=== PATIENT | female | born 1990 | race Caucasian/White ===

== ENCOUNTER 2017-03-03 17:58 | Emergency (ER) | payer OTHER ==
[2017-03-03 18:05] VITALS: BMI 26.1
[2017-03-03 18:37] VITALS: BP 96/59; PULSE 88; TEMP 98.6
[2017-03-03] MEDS ORDERED: LACTATED RINGERS SOLUTION 500 ML IV ONE ×2 (20:00→21:00)
[2017-03-03] MEDS ORDERED: BETAMET ACET/BETAMET NA PH 30 MG/5 ML VIAL IM SCH (20:00)
[2017-03-03] MEDS ORDERED: AMPICILLIN 2 GM/100 ML BAG (PRE-DOCKED) IVPB ONE (20:00)
== END 2017-03-03 23:55 | disposition home or self-care (01) ==
LOC: JER 17:58
DX: R10.84 Generalized abdominal pain (principal); Z3A.30 30 weeks gestation of pregnancy
CPT/HCPCS: 99281-25

== ENCOUNTER 2017-05-07 20:05 | Inpatient (IN) | payer OTHER ==
--- NOTE | 2017-05-07 20:54 | HP ---
Past Medical History - Admission Chief Complaint: Labor pain History of Present Illness: 26 yo @ 39 weeks gestation, seen in office today and was sent to hospital for augmentation of labor. She c/o mild contractions pain; she denies any vaginal bleeding nor ROM. EDC 08/19 History Source: Patient Limitations to Obtaining History: No Limitations - Past Medical History ...EDC by Stacey: 05/12/17 - Past Surgical History Past Surgical History: Yes: None Hx Myomectomy: No Hx Transabdominal Cerclage: No - Smoking History Smoking history: Never smoked Have you smoked in the past 12 months: No - Alcohol/Substance Use Hx Alcohol Use: No - Social History Usual Living Arrangement: Yes: With Spouse History of Recent Travel: No Home Medications - Allergies Allergies/Adverse Reactions: Allergies Allergy/AdvReac Type Severity Reaction Status Date / Time No Known Allergies Allergy Verified 05/03/17 04:30 - Home Medications Home Medications: Ambulatory Orders Vit Calc,Iron,Folic [ Vitamins] 1 each PO DAILY 03/03/17 Review of Systems - Review of Systems Constitutional: reports: No Symptoms Eyes: reports: No Symptoms Neck: reports: No Symptoms Cardiovascular: reports: No Symptoms Respiratory: reports: No Symptoms Gastrointestinal: reports: No Symptoms Genitourinary: reports: No Symptoms Breasts: reports: No Symptoms Reported Musculoskeletal: reports: No Symptoms Integumentary: reports: No Symptoms Neurological: reports: No Symptoms Endocrine: reports: No Symptoms Hematology/Lymphatic: reports: No Symptoms Psychiatric: reports: No Symptoms Pain Intensity: 3 Physical Exam - Maternity Constitutional: Yes: Well Nourished Eyes: Yes: Conjunctiva Clear HENT: Yes: Atraumatic Neck: Yes: Supple, Trachea Midline Cardiovascular: Yes: Regular Rate and Rhythm Lungs: Clear to auscultation - Abdominal Exam/OB Number of Fetuses: Single Presentation: Vertex Contractions: Yes Regularity: Irregular - Vaginal Exam/OB Vaginal Bleediing: No Dilatation (cm): 5 Effacement (%): 80 Presentation: Vertex/Position Station: -2 - Physical Exam Integumentary: Yes: WNL ...Motor Strength: WNL Psychiatric: Yes: Alert, Oriented Problem List - Problems (1) Pain during labor Code(s): O99.89 - OTH DISEASES AND CONDITIONS COMPL PREG/CHLDBRTH R52 - PAIN, UNSPECIFIED Assessment/Plan Labor pain Pitocin augmentation Anticipate
[2017-05-07] MEDS ORDERED: OXYTOCIN 15 UNITS/ LR 250 ML 250 ML IVPB SCH (21:00)
[2017-05-07] MEDS ORDERED: DEXTROSE 5%-LACTATED RINGERS 1,000 ML IV SCH (21:00)
[2017-05-07 22:08] VITALS: BMI 27.9
[2017-05-07 22:23] LABS: BASOPHIL 0.3 % (0-2.0); EOSINOPHIL 0.6 % (0-4.5); MCH 27.8 pg (25.7-33.7); MCHC 33.4 g/dl (32.0-36.0); MEAN CELL VOLUME 83.3 fl (80-96); MEAN PLT VOLUME 8.3 fl (7.5-11.1); NEUTROPHILS 74.9 % (42.8-82.8); PLATELET COUNT 272 K/MM3 (134-434); RDW 13.7 % (11.6-15.6); WHITE BLOOD COUNT 10.8 K/mm3 (4.0-10.0)
[2017-05-07 22:38] LABS: INR 0.92 (0.82-1.09); PROTHROMBIN TIME (PATIENT) 10.1 SEC (9.98-11.88)
[2017-05-07 22:40] LABS: ACTIVATED PTT 25.1 SECONDS (26.9-34.4)
[2017-05-07 22:43] LABS: ANION GAP 10 (8-16); CALCIUM 9.3 mg/dL (8.5-10.1); CO2 24 mmol/L (21-32); CREATININE 0.5 mg/dL (0.55-1.02); GLUCOSE,RANDOM 101 mg/dL (74-106)
[2017-05-07] MEDS ORDERED: PROMETHAZINE HCL 25 MG/1 ML VIAL IVPB ONE (23:15)
[2017-05-07] MEDS ORDERED: BUTORPHANOL TARTRATE 1 MG/ML VIAL IVPB ONE (23:15)
[2017-05-08] MEDS ORDERED: WITCH HAZEL 50% (TUCKS) 40 PAD/JAR PAD TP PRN (00:29)
[2017-05-08] MEDS ORDERED: METHYLERGONOVINE MALEATE 0.2 MG/1 ML AMP IM PRN (00:29)
[2017-05-08] MEDS ORDERED: BISACODYL 10 MG SUPP.RECT RC PRN (00:29)
[2017-05-08] MEDS ORDERED: BENZOCAINE 20% 57 GM BOTTLE TP PRN (00:29)
[2017-05-08] MEDS ORDERED: BENZOCAINE 28 GM HEMORRHOIDAL OINTMENT TP PRN (00:29)
[2017-05-08] MEDS ORDERED: D5W-LR W/ 20 UNITS OXYTOCIN 1,000 ML IV SCH (00:30)
--- NOTE | 2017-05-08 00:34 | PN ---
Delivery - Delivery Vaginal Delivery: Spontaneous Type of Anesthesia: Local Episiotomy/Laceration: 1st degree EBL (cc): 300 Delivery, Single - Feeding Plan Initial Plan: Exclusive throughout hospitalization Remarks - Remarks Remarks: Normal spontaneous vaginal delivery of a live girl over 1st degree laceration. Nose / Oropharynx suctioned @ perineum. Cord clamped and cut. Placenta expelled spontaneously intact. Laceration repaired with 2.0 Byosyn
--- NOTE | 2017-05-08 00:42 | DS ---
Physical Exam-MEAT HANGER Vital Signs: Vital Signs Temperature 98.0 F 05/07/17 22:00 Pulse Rate 89 05/07/17 23:00 Respiratory Rate 20 05/07/17 23:00 Blood Pressure 112/72 05/07/17 23:00 O2 Sat by Pulse Oximetry (%) Constitutional: Yes: Well Nourished Eyes: Yes: Conjunctiva Clear HENT: Yes: Atraumatic Neck: Yes: Supple, Trachea Midline Cardiovascular: Yes: Regular Rate and Rhythm Respiratory: Yes: Regular, CTA Bilaterally Gastrointestinal: Yes: Normal Bowel Sounds Vaginal Exam: Yes: Normal Cervix: Yes: Normal Uterus: Yes: Firm ....Post : Yes: Uterus firm, Moderate lochia serosa Breast(s): Yes: WNL, Gynecomastia Extremities: Yes: WNL Neurological: Yes: Alert, Oriented ...Motor Strength: WNL Psychiatric: Yes: Alert, Oriented Labs: CBC, BMP 05/07/17 21:20 05/07/17 21:20 Delivery - Delivery Vaginal Delivery: Spontaneous Type of Anesthesia: Local Episiotomy/Laceration: 1st degree EBL (cc): 300 Delivery, Single - 1 Minute Total Score: 9 5 Minutes Total Score: 9 - [place] Feeding Plan Initial Plan: Exclusive throughout hospitalization Discharge Summary Reason For Visit: LABOR ADMIT Current Active Problems Pain during labor (Acute) Status post normal vaginal delivery (Acute) Procedures: Principal: Normal spontaneous vaginal delivery Hospital Course: Routine care Condition: Good - Instructions Diet, Activity, Other Instructions: Regular diet No douching, no sexual intercourse x 6 weeks. Referrals: Mari Conway MD [Staff Physician] - Disposition: HOME - Home Medications Comprehensive Discharge Medication List: Ambulatory Orders Vit Calc,Iron,Folic [ Vitamins] 1 each PO DAILY 03/03/17
[2017-05-08] MEDS: IBUPROFEN 600 MG TABLET (FP) PO PRN ×3 (06:41→20:24)
[2017-05-08] MEDS: ACETAMINOPHEN 325 MG TABLET (FP) PO PRN ×3 (06:43→20:23)
[2017-05-08] MEDS: PRENATAL VITAMINS W/ FOLIC ACID TABLET (FP) PO SCH (09:13)
[2017-05-08] MEDS: FERROUS SO4 325 MG TABLET (FP) PO SCH ×3 (09:13→17:12)
[2017-05-09] MEDS: IBUPROFEN 600 MG TABLET (FP) PO PRN ×4 (05:20→22:55)
[2017-05-09] MEDS: ACETAMINOPHEN 325 MG TABLET (FP) PO PRN ×4 (05:21→22:55)
[2017-05-09 07:03] LABS: BASOPHIL 0.4 % (0-2.0); EOSINOPHIL 1.1 % (0-4.5); MCHC 33.6 g/dl (32.0-36.0); MEAN CELL VOLUME 83.3 fl (80-96); NEUTROPHILS 70.1 % (42.8-82.8); PLATELET COUNT 240 K/MM3 (134-434); WHITE BLOOD COUNT 12.2 K/mm3 (4.0-10.0)
[2017-05-09] MEDS: FERROUS SO4 325 MG TABLET (FP) PO SCH ×3 (08:36→17:13)
[2017-05-09] MEDS: PRENATAL VITAMINS W/ FOLIC ACID TABLET (FP) PO SCH (09:41)
[2017-05-09] MEDS ORDERED: DIPHTH,PERTUSS(ACELL),TET 0.5 ML DISP.SYRIN IM ONE (11:00)
[2017-05-09] MEDS ORDERED: SENNOSIDES/DOCUSATE COMBO (SENNA PLUS) TABLET (UD) PO PRN (22:00)
[2017-05-10] MEDS: ACETAMINOPHEN 325 MG TABLET (FP) PO PRN ×3 (03:37→13:02)
[2017-05-10] MEDS: IBUPROFEN 600 MG TABLET (FP) PO PRN ×3 (03:37→13:01)
[2017-05-10] MEDS: FERROUS SO4 325 MG TABLET (FP) PO SCH ×2 (08:05→11:41)
[2017-05-10] MEDS: PRENATAL VITAMINS W/ FOLIC ACID TABLET (FP) PO SCH (10:04)
[2017-05-10 10:18] VITALS: BP 114/75; PULSE 60; TEMP 97.9
== END 2017-05-10 14:35 | disposition home or self-care (01) | DRG 560 ==
LOC: JLDR 20:05 → J3W 05-08 03:15
PROVIDERS: ADMIT Obstetrics & Gynecology; ATTEND Obstetrics & Gynecology
PROC: 10E0XZZ Delivery of Products of Conception, External Approach (ICD-10-PCS; principal; 2017-05-08)
PROC: 0HQ9XZZ Repair Perineum Skin, External Approach (ICD-10-PCS; 2017-05-08)
PROC: 0W8NXZZ Division of Female Perineum, External Approach (ICD-10-PCS; 2017-05-08)
DX: O70.0 First degree perineal laceration during delivery (principal); Z3A.39 39 weeks gestation of pregnancy; Z37.0 Single live birth
CPT/HCPCS: 36415; 59409; 80048; 85025; 85610; 85730; 86593; 86850; 86900; 86901; 90715

== ENCOUNTER 2019-01-25 10:36 | Emergency (ER) | payer OTHER ==
[2019-01-25 10:52] VITALS: BP 103/64; PULSE 69; TEMP 98.2; BMI 22.9
[2019-01-25] MEDS ORDERED: ONDANSETRON *ODT* 4 MG TABLET SL ONE (12:25)
[2019-01-25] MEDS ORDERED: ONDANSETRON *ODT* 4 MG TABLET ONE (12:27)
--- NOTE | 2019-01-25 12:28 | PDOC ---
History of Present Illness - General Chief Complaint: Nausea/Vomiting Stated Complaint: NAUSEA/VOMITING Time Seen by Provider: 01/25/19 11:57 - History of Present Illness Initial Comments: 01/25/19 12:27 28-year-old female with a past medical history of GERD, she takes omeprazole and intermittent Zofran presents for evaluation of vomiting times one day. No systemic symptoms. Past History - Past Medical History Allergies/Adverse Reactions: Allergies Allergy/AdvReac Type Severity Reaction Status Date / Time No Known Allergies Allergy Verified 01/25/19 10:52 Home Medications: Ambulatory Orders Vit Calc,Iron,Folic [ Vitamins] 1 each PO DAILY 03/03/17 Asthma: No Cancer: No Cardiac Disorders: No COPD: No Diabetes: No HTN: No Seizures: No Thyroid Disease: No - Immunization History Immunization Up to Date: Yes - Suicide/Smoking/Psychosocial Hx Smoking History: Never smoked Have you smoked in the past 12 months: No Hx Alcohol Use: No Drug/Substance Use Hx: No Substance Use Type: None Hx Substance Use Treatment: No Review of Systems - Review of Systems Constitutional: No: Fever ABD/GI: Yes: Nausea, Vomiting. No: Constipated, Diarrhea *Physical Exam - Vital Signs Last Vital Signs Temp Pulse Resp BP Pulse Ox 98.2 F 69 16 103/64 100 01/25/19 10:49 01/25/19 10:49 01/25/19 10:49 01/25/19 10:49 01/25/19 10:49 - Physical Exam Comments: 01/25/19 12:27 HEAD: NC/AT EYES: Conjuntiva clear Ears: Canals and TM's normal NOSE: No d/c THROAT: Moist mucous membrances, oral pharanx clear, uvula midline NECK: Supple without adenopathy CARDIAC: S1 S2 LUNGS: CTA Full and Equal breath sounds ABDOMEN: Soft NT ND MS: Full ROM in all joints without edema NEUROLOGIC: No gross sensory or motor deficits, NVID SKIN: Normal color and temperature no lesions or rashes Medical Decision Making - Medical Decision Making 01/25/19 12:27 Is a benign abdominal examination on the healthy 28-year-old female with a past medical history of GERD. She has Zofran at home which has not been helpful. Will check urine and most likely discharge her with GI follow-up she does not appear dehydrated or sickly 01/25/19 13:01 Negative minimal improvement with Zofran. Patient states she may have a to food that upset her stomach the other day. I will have her follow-up with her GI doctor. *DC/Admit/Observation/Transfer Diagnosis at time of Disposition: Vomiting - Discharge Dispostion Disposition: HOME Condition at time of disposition: Stable Decision to Admit order: No - Referrals - Patient Instructions Printed Discharge Instructions: DI for Vomiting -- Adult Additional Instructions: Please follow-up with your GI doctor in the next 1-2 days for further evaluation and treatment options and return to the emergency room should symptoms go unresolved within the next 1-2 days. Continue your regularly scheduled medication of omeprazole and Zofran - Post Discharge Activity
== END 2019-01-25 13:20 | disposition home or self-care (01) ==
LOC: JERFT 10:36
DX: R11.10 Vomiting, unspecified (principal); K21.9 Gastro-esophageal reflux disease without esophagitis
CPT/HCPCS: 84703; 99281-25; Q0162

== ENCOUNTER 2019-10-25 19:00 | Emergency (ER) | payer OTHER ==
[2019-10-25 19:10] VITALS: BP 120/81; PULSE 76; TEMP 99; BMI 21.9
--- NOTE | 2019-10-25 19:10 | PDOC ---
Rapid Medical Evaluation Chief Complaint: Injury Time Seen by Provider: 10/25/19 19:07 Medical Evaluation: Allergies Allergy/AdvReac Type Severity Reaction Status Date / Time No Known Allergies Allergy Verified 01/25/19 10:52 10/25/19 19:08 I performed a brief in-person evaluation of this patient. Healthy 28-year-old female twisted foot 30 mins ago, unable to bear weight. Pertinent physical exam findings: Marked swelling and tenderness lateral aspect right foot Sensation intact I have ordered the following: Ankle and foot xray Patient to proceed to: FT for further evaluation Discharge Disposition - Diagnosis Injury, foot - Referrals - Patient Instructions - Post Discharge Activity
--- NOTE | 2019-10-25 21:13 | PDOC ---
History of Present Illness - General Chief Complaint: Injury Stated Complaint: RT ANKLE INJURY Time Seen by Provider: 10/25/19 19:07 - History of Present Illness Initial Comments: 10/25/19 21:10 28-year-old female presents for evaluation of right foot pain after miss stepping earlier today Past History - Past Medical History Allergies/Adverse Reactions: Allergies Allergy/AdvReac Type Severity Reaction Status Date / Time No Known Allergies Allergy Verified 10/25/19 19:10 Home Medications: Ambulatory Orders Vit Calc,Iron,Folic [ Vitamins] 1 each PO DAILY 03/03/17 Asthma: No Cancer: No Cardiac Disorders: No COPD: No Diabetes: No HTN: No Seizures: No Thyroid Disease: No - Immunization History Immunization Up to Date: Yes - Psycho Social/Smoking Cessation Hx Smoking History: Never smoked Have you smoked in the past 12 months: No Hx Alcohol Use: No Drug/Substance Use Hx: No Substance Use Type: None Hx Substance Use Treatment: No Review of Systems - Review of Systems Musculoskeletal: Yes: Joint Pain *Physical Exam - Vital Signs Last Vital Signs Temp Pulse Resp BP Pulse Ox 99.0 F 76 18 120/81 100 10/25/19 19:08 10/25/19 19:08 10/25/19 19:08 10/25/19 19:08 10/25/19 19:08 - Physical Exam 10/25/19 21:11 Right foot skin color and temperature normal. There is lateral swelling about the dorsum of the foot. No gross sensorimotor deficits no tenderness about the knee ankle navicular or ATFL. No tenderness about the base of the fifth metatarsal. Tenderness about the cuboid and cuneiforms. Neurovascular intact. Medical Decision Making - Medical Decision Making 10/25/19 21:11 Nonweightbearing with Lai wrap and crutches as harsh and [place] shoe follow- up with orthopedic 10/25/19 21:11 X-rays show a questionable fracture of the cuboid best seen on lateral Discharge - Discharge Information Problems reviewed: Yes Clinical Impression/Diagnosis: Injury, foot Condition: Stable Disposition: HOME - Admission No - Follow up/Referral Referrals: Mango Parkinson MD [Primary Care Provider] - Richie Snowden DO [Staff Physician] - - Patient Discharge Instructions Additional Instructions: Remain nonweightbearing with use of crutches and the Lai wrap as well as the postop shoe. Return to the emergency room for worsening symptoms and without fail follow-up with orthopedic surgery in 2 to 3 days for further evaluation and treatment options peer you may take Tylenol and Motrin as directed for pain. - Post Discharge Activity
== END 2019-10-25 21:21 | disposition home or self-care (01) ==
LOC: JERFT 19:00
PROC: 2W3QX1Z Immobilization of Right Lower Leg using Splint (ICD-10-PCS; principal; 2019-10-25)
DX: S99.811A Other specified injuries of right ankle, initial encounter (principal); M25.571 Pain in right ankle and joints of right foot; X50.1XXA Overexertion from prolonged static or awkward postures, initial encounter; Y93.89 Activity, other specified; Y92.89 Other specified places as the place of occurrence of the external cause; Y99.8 Other external cause status
CPT/HCPCS: 73610-TC-RT-FY; 73630-TC-RT-FY; 99281-25

== ENCOUNTER 2019-12-02 10:56 | Emergency (ER) | payer OTHER ==
[2019-12-02 11:29] VITALS: BMI 23.8
--- NOTE | 2019-12-02 13:04 | PDOC ---
History of Present Illness - General Chief Complaint: Vaginal Bleeding Stated Complaint: VAGINAL BLEEDING Time Seen by Provider: 12/02/19 11:57 History Source: Patient Exam Limitations: No Limitations - History of Present Illness Travel History: No Initial Comments: 12/02/19 12:05 28-year-old female approximately 6 weeks based on LMP of 10/29 presents to ED with vaginal bleeding since this morning upon awakening. Patient states did 2 home test one on Friday and then 1 yesterday which both were positive. Patient states did not seek AQUATICS MANAGER care as yet but decided come to the ER when bleeding started. Patient states cramping to the left side which began this morning also. Patient denies history of miscarriages /ectopics. Patient denies recent injury, sexual intercourse, fever or chills. Pt states history of anemia. Timing/Duration: reports: constant Quality: reports: mild, cramping Abdominal Pain Onset Location: reports: suprapubic (left) Pain Radiation: reports: no radiation Activities at Onset: reports: none Aggravating Factors: improves with: None Alleviating Factors: improves with: None Past History - Travel Traveled outside of the country in the last 30 days: No Close contact w/someone who was outside of country & ill: No - Past Medical History Allergies/Adverse Reactions: Allergies Allergy/AdvReac Type Severity Reaction Status Date / Time No Known Allergies Allergy Verified 12/02/19 11:27 Home Medications: Ambulatory Orders Nitrofurantoin Monohyd/M-Cryst [Macrobid -] 100 mg PO BID #14 capsule 12/02/19 Asthma: No Cancer: No Cardiac Disorders: No COPD: No Diabetes: No HTN: No Seizures: No Thyroid Disease: No - Reproductive History (#): 3 Para: 2 Spontaneous : 0 - Immunization History Immunization Up to Date: Yes - Psycho Social/Smoking Cessation Hx Smoking History: Never smoked Have you smoked in the past 12 months: No Hx Alcohol Use: No Drug/Substance Use Hx: No Substance Use Type: None Hx Substance Use Treatment: No Patient Lives Alone: No Lives with/in: spouse/SO Review of Systems - Review of Systems Able to Perform ROS?: Yes Constitutional: No: Symptoms Reported HEENTM: No: Symptoms Reported Respiratory: No: Symptoms reported Cardiac (ROS): No: Symptoms Reported ABD/GI: Yes: Abdominal cramping : Yes: Symptoms Reported, Discharge (vag bleeding ) Musculoskeletal: No: Symptoms Reported Integumentary: No: Symptoms Reported Endocrine: No: Symptoms Reported Hematologic/Lymphatic: Yes: Anemia *Physical Exam - Vital Signs Last Vital Signs Temp Pulse Resp BP Pulse Ox 98.5 F 73 18 113/75 99 12/02/19 11:28 12/02/19 11:28 12/02/19 11:28 12/02/19 11:28 12/02/19 11:28 - Physical Exam General Appearance: Yes: Nourished, Appropriately Dressed. No: Apparent Distress HEENT: negative: Pale Conjunctivae Neck: positive: Normal Thyroid Respiratory/Chest: positive: Lungs Clear, Normal Breath Sounds. negative: Respiratory Distress, Accessory Muscle Use Cardiovascular: positive: Regular Rhythm, Regular Rate. negative: Murmur Female Pelvic Exam: positive: cervical os closed, vaginal bleeding (brb in mod amt, no clots). negative: adnexal tenderness Gastrointestinal/Abdominal: positive: Soft, Tenderness (llq/suprapubic) Musculoskeletal: negative: CVA Tenderness Extremity: positive: Normal Inspection Integumentary: positive: Normal Color, Warm, Moist Neurologic: positive: Motor Strength 5/5 (ambulatory) ED Treatment Course - LABORATORY CBC & Chemistry Diagram: 12/02/19 12:00 12/02/19 12:00 - RADIOLOGY Radiology Studies Ordered: Category Date Time Status TRANSVAGINAL US PREG [US] Stat Ultrasound 12/02/19 11:58 Ordered Medical Decision Making - Medical Decision Making 12/02/19 13:11 CC: vag bleeding since this am with llq cramping, pt lmp 10/29. 2 preg tests + Exam: vss, brb vag bleeding, no clots Plan: labs, urine , and u/s 12/02/19 14:28 Laboratory Tests 12/02/19 12/02/19 12/02/19 12:00 12:00 12:30 WBC 5.0 Hgb 11.1 Hct 34.2 RDW 16.6 H Absolute Neuts (auto) 3.1 Sodium 139 Potassium 4.0 Chloride 108 H Carbon Dioxide 26 Anion Gap 5 L BUN 13.6 Creatinine 0.5 L Random Glucose 86 Calcium 9.2 Total Bilirubin 0.4 AST 16 ALT 19 Alkaline Phosphatase 69 Total Protein 7.9 Albumin 3.9 Beta HCG, Quant 5.7 Urine Protein 2+ H Urine Glucose (UA) Negative Urine Ketones Negative Urine Blood 3+ H Urine Nitrite Negative Urine Bilirubin Negative Ur Leukocyte Esterase 2+ H Urine WBC (Auto) 167 Urine RBC (Auto) 236.9 Urine Casts (Auto) 11 U Epithel Cells (Auto) 26.0 Urine Crystals (Auto) None seen Urine Bacteria (Auto) 143.4 The patient will f/u with [facility] Discharge - Discharge Information Problems reviewed: Yes Clinical Impression/Diagnosis: UTI (urinary tract infection), Vaginal bleeding Condition: Good Disposition: HOME - Additional Discharge Information Prescriptions: Nitrofurantoin Monohyd/M-Cryst [Macrobid -] 100 mg PO BID #14 capsule - Follow up/Referral Referrals: Mango Parkinson MD [Primary Care Provider] - - Patient Discharge Instructions Patient Printed Discharge Instructions: DI for Vaginal Bleeding, DI for Urinary Tract Infection (UTI) Additional Instructions: Please follow up with your [facility]. take antibiotics starting today - Post Discharge Activity
[2019-12-02 13:07] LABS: HYALINE CASTS 11 /lpf (0-8); URINE APPEARANCE TURBID; URINE BACTERIA 143.4 /hpf (NEGATIVE); URINE BILIRUBIN NEGATIVE (NEGATIVE); URINE COLOR RED; URINE GLUCOSE (UA) NEGATIVE (NEGATIVE); URINE KETONE NEGATIVE (NEGATIVE); URINE LEUK ESTERASE 2+ (NEGATIVE); URINE NITRITE NEGATIVE (NEGATIVE); URINE PROTEIN 2+ (NEGATIVE); URINE WBC 167 /hpf (0-5)
[2019-12-02 13:41] LABS: URINE CRYSTALS NONE SEEN /hpf; URINE RBC 236.9 /hpf (0-4)
[2019-12-02 13:50] LABS: BASO % 0.3 % (0-2.0); EOS % 0.9 % (0-4.5); HEMATOCRIT 34.2 % (32.4-45.2); HEMOGLOBIN 11.1 GM/dL (10.7-15.3); LYMPH % 27.1 % (8-40); MCH 25.7 pg (25.7-33.7); MCHC 32.5 g/dl (32.0-36.0); MEAN CELL VOLUME 78.9 fl (80-96); MEAN PLT VOLUME 9.2 fl (7.5-11.1); MONO % 8.3 % (3.8-10.2); NEUT % 63.4 % (42.8-82.8); PLATELET COUNT 306 K/MM3 (134-434); RBC 4.33 M/mm3 (3.60-5.2); RDW 16.6 % (11.6-15.6)
[2019-12-02 14:16] LABS: ALBUMIN 3.9 g/dl (3.4-5.0); BILIRUBIN,TOTAL 0.4 mg/dL (0.2-1); BLOOD UREA NITROGEN 13.6 mg/dL (7-18); CALCIUM 9.2 mg/dL (8.5-10.1); CREATININE 0.5 mg/dL (0.55-1.3); TOT PROT 7.9 g/dl (6.4-8.2)
[2019-12-02 14:35] VITALS: BP 107/77; PULSE 82; TEMP 98.2
== END 2019-12-02 14:40 | disposition home or self-care (01) ==
LOC: JER 10:56
DX: O26.891 Other specified pregnancy related conditions, first trimester (principal); O23.41 Unspecified infection of urinary tract in pregnancy, first trimester; O20.8 Other hemorrhage in early pregnancy; Z3A.01 Less than 8 weeks gestation of pregnancy
CPT/HCPCS: 36415; 76817-TC; 80053; 81003; 84702; 85025; 86850; 86900; 86901; 87086; 99282-25

== ENCOUNTER 2020-05-04 13:30 | Emergency (ER) | payer OTHER ==
--- NOTE | 2020-05-04 13:37 | PDOC ---
Rapid Medical Evaluation Chief Complaint: Vaginal Bleeding Time Seen by Provider: 05/04/20 13:34 Medical Evaluation: Allergies Allergy/AdvReac Type Severity Reaction Status Date / Time No Known Allergies Allergy Verified 12/02/19 11:27 05/04/20 13:35 CC: vag bleeding since last night , 5 weeks , , no abd pain Exam: VVS, no abd pain Plan: labs urine and u/s Discharge Disposition - Diagnosis Vagina bleeding - Referrals - Patient Instructions - Post Discharge Activity
[2020-05-04 14:04] VITALS: BP 110/73; PULSE 97; TEMP 99; BMI 24.4
--- NOTE | 2020-05-04 14:25 | PDOC ---
History of Present Illness - General Chief Complaint: Vaginal Bleeding Stated Complaint: 5 WK PREG / VAG BLEED Time Seen by Provider: 05/04/20 13:34 History Source: Patient Exam Limitations: No Limitations - History of Present Illness Initial Comments: 05/04/20 14:20 Patient is a 29-year-old female G3, P2, 5 weeks 3 days gestation per dates who presents to the ED stating that she passed something brown earlier today. She went to her [employer]PER[employer]'s office and was told to come to the ED for evaluation. She denies any pain or vaginal bleeding. She denies any dysuria or hematuria. The patient states that what ever she passed was brown in color and when she wipes she sees the same brown color. She denies using any pads today. She has no past medical history or allergies to medications. Past History - Medical History Allergies/Adverse Reactions: Allergies Allergy/AdvReac Type Severity Reaction Status Date / Time No Known Allergies Allergy Verified 05/04/20 13:48 Home Medications: Ambulatory Orders Nitrofurantoin Monohyd/M-Cryst [Macrobid -] 100 mg PO BID #14 capsule 12/02/19 Cephalexin [Keflex] 500 mg PO BID #14 capsule 05/04/20 Asthma: No Cancer: No Cardiac Disorders: No COPD: No Diabetes: No HTN: No Seizures: No Thyroid Disease: No - Reproductive History (#): 3 Para: 2 Spontaneous : 0 - Immunization History Immunization Up to Date: Yes - Psycho-Social/Smoking History Smoking History: Never smoked Have you smoked in the past 12 months: No Review of Systems - Review of Systems Comments:: 05/04/20 14:21 - Review of Systems Able to Perform ROS?: Yes Constitutional: No: Fever, Chills, Loss of Appetite, Night Sweats, Weakness HEENTM: No: Eye Pain, Vision changes, Ear Pain, Throat Pain, Throat Swelling, Mouth Pain, Difficulty Swallowing Respiratory: No: Cough, Shortness of Breath, Wheezing, Sputum Production Cardiac (ROS): No: Chest Pain, Chest Tightness, Palpitations, Irregular Heart Beat, Edema ABD/GI: No: Nausea, Vomiting, Abdominal Pain, Diarrhea : No Dysuria, No Hematuria, No Frequency, No Urgency, positive: Vaginal Discharge/bleeding x1 today Musculoskeletal: No: Muscle Pain, Back Pain, Joint Pain, Muscle Weakness, Neck Pain Integumentary: No: Lesions, Rash Neurological: No: Headache, Numbness, Tingling, Weakness, Speech Difficulties *Physical Exam - Vital Signs Last Vital Signs Temp Pulse Resp BP Pulse Ox 99.0 F 97 H 16 110/73 100 05/04/20 13:35 05/04/20 13:35 05/04/20 13:35 05/04/20 13:35 05/04/20 13:35 - Physical Exam 05/04/20 14:21 - Physical Exam General Appearance: Nourished, Appropriately Dressed, No Distress HEENT: EOMI, Normal Voice, Hearing Grossly Normal Neck: Supple, No Lymphadenopathy (R), No Lymphadenopathy (L), No Rigidity, No Decreased range of motion Respiratory/Chest: Lungs Clear, Normal Breath Sounds. No Respiratory Distress, No Accessory Muscle Use Cardiovascular: Regular Rhythm, Regular Rate, S1, S2 Gastrointestinal/Abdominal: Normal Bowel Sounds, Soft. Non-tender, No Guarding, No Rebound, No Rigidity LOOM REPAIRER: no blood visualized in the vaginal vault, thick white d/c in the vault consistent with yeast vaginitis, os closed, no CMT appreciated, uterus nontender and nonpalpable, no masses palpated to the suprapubic region or the b/l adnexa, adnexa nontender and nonpalpable Musculoskeletal: Normal Inspection. No Decreased Range of Motion Extremity: Normal Capillary Refill, Normal Inspection Integumentary: Normal Color, Dry. No Rash Neurologic: freight engineer II-XII NML intact, Fully Oriented, Alert, Normal Mood/Affect, Normal Response ED Treatment Course - LABORATORY CBC & Chemistry Diagram: 05/04/20 14:11 05/04/20 14:11 Medical Decision Making - Medical Decision Making 05/04/20 14:25 Assessment: Patient is a 29-year-old female who is 5 weeks 3 days gestation with possible vaginal bleeding. Plan: -Labs ordered including a beta hCG and type and screen -Transvaginal ultrasound ordered for further evaluation -Will treat the patient for yeast vaginitis -Will reassess 05/04/20 16:50 The patient has been made aware that her ultrasound shows a single live intrauterine gestation with heart rate of 176 bpm with a subchorionic hemorrhage appreciated. She is roughly 9 weeks gestation via ultrasound. The patient's blood type is a positive and therefore she does not require RhoGam. She has an appointment with her [employer] on 05/08/2020 for further evaluation. She has been given a copy of her ultrasound results. She has been made aware that she should avoid strenuous activity, heavy lifting or intercourse. Discharge - Discharge Information Problems reviewed: Yes Clinical Impression/Diagnosis: Vagina bleeding, Vaginal bleeding during , Bacteriuria during Subchorionic hemorrhage in first trimester Qualifiers: Fetus number: single or unspecified fetus Qualified Code(s): O41.8X10 - Other specified disorders of amniotic fluid and membranes, first trimester, not applicable or unspecified; O46.8X1 - Other antepartum hemorrhage, first trimester Condition: Stable Disposition: HOME - Additional Discharge Information Prescriptions: Cephalexin [Keflex] 500 mg PO BID #14 capsule - Follow up/Referral Referrals: Mango Parkinson MD [Primary Care Provider] - - Patient Discharge Instructions Patient Printed Discharge Instructions: DI for Urinary Tract Infection (UTI), DI for Vaginal Bleeding During Additional Instructions: Plenty of rest and drink plenty of fluids. Avoid any strenuous activity, heavy lifting or sexual intercourse until you are cleared by your [employer]. You have bacteria in your urine and therefore we are treating you with antibiotics since you are . Be sure to follow-up with your [employer] at your scheduled appointment on 05/08/2020. - Post Discharge Activity
[2020-05-04 14:46] LABS: BASO % 0.3 % (0-2.0); EOS % 0.7 % (0-4.5); HEMATOCRIT 34.8 % (32.4-45.2); HEMOGLOBIN 11.5 GM/dL (10.7-15.3); LYMPH % 16.3 % (8-40); MCH 26.8 pg (25.7-33.7); MCHC 32.9 g/dl (32.0-36.0); MEAN CELL VOLUME 81.4 fl (80-96); MEAN PLT VOLUME 9.3 fl (7.5-11.1); MONO % 7.3 % (3.8-10.2); NEUT % 75.4 % (42.8-82.8); PLATELET COUNT 274 K/MM3 (134-434); RBC 4.27 M/mm3 (3.60-5.2); RDW 17.4 % (11.6-15.6); WHITE BLOOD COUNT 8.9 K/mm3 (4.0-10.0)
[2020-05-04 15:17] LABS: BILIRUBIN,TOTAL 0.2 mg/dL (0.2-1); BLOOD UREA NITROGEN 17.8 mg/dL (7-18); CALCIUM 9.6 mg/dL (8.5-10.1); CREATININE 0.6 mg/dL (0.55-1.3); POTASSIUM 4.4 mmol/L (3.5-5.1); TOT PROT 8.1 g/dl (6.4-8.2)
[2020-05-04 15:43] LABS: EPI CELLS 36 /uL (0-25.1); HYALINE CASTS 6 /uL (0-3.1); PH,URINE 6.5 (5.0-8.0); URINE APPEARANCE CLOUDY; URINE BACTERIA 680 /uL (0-1359); URINE BILIRUBIN NEGATIVE (NEGATIVE); URINE COLOR YELLOW; URINE GLUCOSE (UA) NEGATIVE (NEGATIVE); URINE KETONE TRACE (NEGATIVE); URINE LEUK ESTERASE 3+ (NEGATIVE); URINE NITRITE NEGATIVE (NEGATIVE); URINE PROTEIN TRACE (NEGATIVE); URINE RBC 3 /uL (0-23.9); URINE UROBILINOGEN 0.2 mg/dL (0.2-1.0); URINE WBC 150 /uL (0-25.8)
[2020-05-04 15:54] LABS: YEAST NON SEEN (NEGATIVE)
== END 2020-05-04 17:00 | disposition home or self-care (01) ==
LOC: JER 13:30
DX: O20.9 Hemorrhage in early pregnancy, unspecified (principal); O46.8X1 Other antepartum hemorrhage, first trimester; O23.91 Unspecified genitourinary tract infection in pregnancy, first trimester; Z3A.01 Less than 8 weeks gestation of pregnancy
CPT/HCPCS: 36415; 76817-TC; 80053; 81003; 84702; 85025; 86850; 86900; 86901; 87077; 87086; 99284-25

== ENCOUNTER 2020-12-12 15:05 | Inpatient (IN) | payer OTHER ==
[2020-12-12] MEDS ORDERED: ELECTROLYTE-148 SOLN 1,000 ML IV SCH (15:30)
[2020-12-12 16:18] VITALS: BMI 30.6
[2020-12-12] MEDS ORDERED: AMPICILLIN - 2 GM in SODIUM CHLORIDE 100 ML IVPB ONE (16:59)
[2020-12-12] MEDS ORDERED: OXYTOCIN 30 UNITS in 0.9% NS 30 UNIT/500 ML INFUS.BAG IVPB SCH (17:00)
[2020-12-12] MEDS ORDERED: PENICILLIN G POTASSIUM 5,000,000 UNIT in SODIUM CHLORIDE 250 ML IVPB ONE (17:30)
[2020-12-12 17:37] LABS: BASO % 0.2 % (0-2.0); EOS % 0.7 % (0-4.5); HEMOGLOBIN 9.7 GM/dL (10.7-15.3); LYMPH % 11.5 % (8-40); MCH 23.6 pg (25.7-33.7); MCHC 32.5 g/dl (32.0-36.0); MEAN CELL VOLUME 72.8 fl (80-96); MEAN PLT VOLUME 7.9 fl (7.5-11.1); MONO % 7.1 % (3.8-10.2); NEUT % 80.5 % (42.8-82.8); PLATELET COUNT 355 K/MM3 (134-434); RBC 4.12 M/mm3 (3.60-5.2); RDW 17.3 % (11.6-15.6); WHITE BLOOD COUNT 11.4 K/mm3 (4.0-10.0)
[2020-12-12] MEDS ORDERED: OXYTOCIN 30 UNITS in 0.9% NS 30 UNIT/500 ML INFUS.BAG IVPB ONE (17:48)
[2020-12-12 17:50] LABS: INR 0.97 (0.83-1.09); PROTHROMBIN TIME (PATIENT) 11.7 SEC (9.7-13.0)
[2020-12-12 17:52] LABS: ACTIVATED PTT 23.9 SECONDS (25.2-36.5)
[2020-12-12 17:53] LABS: POTASSIUM 4.4 mmol/L (3.5-5.1)
[2020-12-12 17:54] LABS: CALCIUM 9.2 mg/dL (8.5-10.1)
[2020-12-12 17:55] LABS: BLOOD UREA NITROGEN 11.2 mg/dL (7-18)
[2020-12-12 17:58] LABS: CREATININE 0.4 mg/dL (0.55-1.3)
[2020-12-12] MEDS ORDERED: FENTANYL/BUPIVACAINE/NS/PF - PCEA - 50 ML DISP.SYRIN EP ONE (19:31)
[2020-12-12] MEDS ORDERED: PCA PUMP NR ONE (19:32)
[2020-12-12] MEDS ORDERED: NALOXONE HCL 0.4 MG/ML VIAL IVPUSH PRN (20:14)
[2020-12-12] MEDS ORDERED: FENTANYL/BUPIVACAINE/NS/PF - PCEA - 50 ML DISP.SYRIN EP SCH (20:15)
[2020-12-12] MEDS ORDERED: AMPICILLIN - 1 GM in SODIUM CHLORIDE 100 ML IVPB SCH (21:00)
[2020-12-12] MEDS ORDERED: LIDOCAINE HCL 1% PRESERVATIVE FREE - 30ML VIAL ONE (21:22)
[2020-12-12] MEDS ORDERED: OXYTOCIN 20 UNITS in 0.9% NS 20 UNIT/1,000 ML INFUS.BAG IV ONE (21:22)
[2020-12-12] MEDS: PENICILLIN G POTASSIUM 2,500,000 UNIT in SODIUM CHLORIDE 100 ML IVPB SCH (21:30)
[2020-12-12] MEDS ORDERED: WITCH HAZEL 50% (TUCKS) 40 PAD/JAR PAD TP PRN (21:47)
[2020-12-12] MEDS ORDERED: BISACODYL 10 MG SUPP.RECT PR PRN (21:47)
[2020-12-12] MEDS ORDERED: METHYLERGONOVINE MALEATE 0.2 MG/1 ML AMP IM PRN (21:47)
[2020-12-12] MEDS ORDERED: BENZOCAINE 20% 57 GM BOTTLE TP PRN (21:47)
[2020-12-12] MEDS ORDERED: BENZOCAINE 28 GM HEMORRHOIDAL OINTMENT PR PRN (21:47)
[2020-12-12] MEDS ORDERED: OXYTOCIN 20 UNITS in 0.9% NS 20 UNIT/1,000 ML INFUS.BAG IV SCH (22:00)
[2020-12-12 23:06] LABS: CORD BASE EXCESS -6.4 mmol/L (0-2); CORD HCO3 18.3 mmHg (20-29); CORD pH 7.35 (7.14-7.44)
[2020-12-13] MEDS ORDERED: ACETAMINOPHEN 325 MG TABLET (FP) ONE (00:04)
[2020-12-13] MEDS ORDERED: IBUPROFEN 600 MG TABLET (FP) PO ONE (00:04)
[2020-12-13] MEDS: PENICILLIN G POTASSIUM 2,500,000 UNIT in SODIUM CHLORIDE 100 ML IVPB SCH ×2 (01:26→06:35)
[2020-12-13] MEDS: IBUPROFEN 600 MG TABLET (FP) PO PRN ×5 (03:47→21:26)
[2020-12-13] MEDS: ACETAMINOPHEN 325 MG TABLET (FP) PO PRN ×4 (03:47→16:48)
[2020-12-13 10:20] LABS: BASO % 0.3 % (0-2.0); EOS % 0.3 % (0-4.5); HEMATOCRIT 26.2 % (32.4-45.2); HEMOGLOBIN 8.6 GM/dL (10.7-15.3); LYMPH % 9.7 % (8-40); MCHC 32.8 g/dl (32.0-36.0); MEAN CELL VOLUME 73.2 fl (80-96); MEAN PLT VOLUME 7.8 fl (7.5-11.1); MONO % 7.3 % (3.8-10.2); NEUT % 82.4 % (42.8-82.8); PLATELET COUNT 290 K/MM3 (134-434); RBC 3.59 M/mm3 (3.60-5.2); RDW 17.5 % (11.6-15.6); WHITE BLOOD COUNT 14.4 K/mm3 (4.0-10.0)
[2020-12-14] MEDS: IBUPROFEN 600 MG TABLET (FP) PO PRN (09:33)
[2020-12-14] MEDS: ACETAMINOPHEN 325 MG TABLET (FP) PO PRN (09:34)
[2020-12-14 11:36] VITALS: BP 114/73; PULSE 84; TEMP 98.2
== END 2020-12-14 13:00 | disposition home or self-care (01) | DRG 560 ==
LOC: JLDR 15:05 → J3W 12-13 00:54
PROVIDERS: ADMIT Obstetrics & Gynecology; ATTEND Obstetrics & Gynecology
PROC: 10E0XZZ Delivery of Products of Conception, External Approach (ICD-10-PCS; principal; 2020-12-12)
DX: O48.0 Post-term pregnancy (principal); O99.824 Streptococcus B carrier state complicating childbirth; Z3A.40 40 weeks gestation of pregnancy; Z37.0 Single live birth
CPT/HCPCS: 36415; 36600; 59409; 80048; 82803; 85025; 85610; 85730; 86780; 86850; 86900; 86901

== ENCOUNTER 2022-04-04 18:10 | Emergency (ER) | payer OTHER ==
[2022-04-04 18:31] VITALS: BP 111/72; PULSE 110; TEMP 98.6; BMI 25.0
== END 2022-04-04 20:34 | disposition left against medical advice (07) ==
LOC: JER 18:10
DX: F41.9 Anxiety disorder, unspecified (principal); R07.9 Chest pain, unspecified
CPT/HCPCS: 99281-25

== ENCOUNTER 2023-08-17 14:15 | Emergency (ER) | payer OTHER ==
[2023-08-17 14:23] VITALS: BMI 22.1
[2023-08-17] MEDS ORDERED: SODIUM CHLORIDE 1,000 ML IV STA (14:35)
[2023-08-17 15:00] LABS: BASO % 0.4 % (0-2.0); EOS % 0.7 % (0-4.5); HEMATOCRIT 32.3 % (32.4-45.2); HEMOGLOBIN 10.9 GM/dL (10.7-15.3); LYMPH % 18.5 % (8-40); MCHC 33.6 g/dl (32.0-36.0); MEAN CELL VOLUME 77.4 fl (80-96); MEAN PLT VOLUME 8.4 fl (7.5-11.1); MONO % 6.5 % (3.8-10.2); NEUT % 73.9 % (42.8-82.8); PLATELET COUNT 283 10^3/uL (134-434); RBC 4.17 M/mm3 (3.60-5.2); RDW 17.3 % (11.6-15.6); WHITE BLOOD COUNT 8.5 K/mm3 (4.0-10.0)
[2023-08-17 15:23] LABS: EPI CELLS >36 /uL (0-25.1); HYALINE CASTS 2 /uL (0-3.1); PH,URINE 8.5 (5.0-8.0); URINE APPEARANCE CLOUDY; URINE BACTERIA 412 /uL (0-1359); URINE BILIRUBIN NEGATIVE (NEGATIVE); URINE COLOR ORANGE; URINE GLUCOSE (UA) NEGATIVE (NEGATIVE); URINE KETONE TRACE (NEGATIVE); URINE LEUK ESTERASE 1+ (NEGATIVE); URINE NITRITE NEGATIVE (NEGATIVE); URINE PROTEIN 2+ (NEGATIVE); URINE RBC 1985 /uL (0-23.9); URINE WBC 131 /uL (0-25.8)
[2023-08-17 15:40] LABS: BLOOD UREA NITROGEN 9.9 mg/dL (7-18); CALCIUM 8.7 mg/dL (8.5-10.1)
[2023-08-17 15:41] LABS: ALBUMIN 3.7 g/dl (3.4-5.0)
[2023-08-17] MEDS ORDERED: ACETAMINOPHEN 500 MG TABLET (FP) PO ONE (15:42)
[2023-08-17 15:43] LABS: CREATININE 0.6 mg/dL (0.55-1.3)
[2023-08-17 15:45] LABS: BILIRUBIN,TOTAL 0.4 mg/dL (0.2-1); TOT PROT 7.3 g/dl (6.4-8.2)
[2023-08-17] MEDS ORDERED: ACETAMINOPHEN 325 MG TABLET (FP) ONE (15:55)
[2023-08-17] MEDS ORDERED: CEPHALEXIN MONOHYDRATE 500 MG CAPSULE (UD) PO ONE (18:54)
[2023-08-17] MEDS ORDERED: CEPHALEXIN MONOHYDRATE 500 MG CAPSULE (UD) ONE (19:17)
[2023-08-17 19:25] VITALS: BP 130/70; PULSE 77; RESP 18; TEMP 98
== END 2023-08-17 19:25 | disposition home or self-care (01) ==
LOC: JER 14:15
PROC: 3E0337Z Introduction of Electrolytic and Water Balance Substance into Peripheral Vein, Percutaneous Approach (ICD-10-PCS; principal; 2023-08-17)
DX: O20.9 Hemorrhage in early pregnancy, unspecified (principal); O23.41 Unspecified infection of urinary tract in pregnancy, first trimester; N39.0 Urinary tract infection, site not specified; O26.811 Pregnancy related exhaustion and fatigue, first trimester; R10.9 Unspecified abdominal pain; R42 Dizziness and giddiness; R51.9 Headache, unspecified; Z3A.01 Less than 8 weeks gestation of pregnancy
CPT/HCPCS: 36415; 76817-TC; 80053; 81003; 84702; 84703; 85025; 86850; 86900; 86901; 87077; 87086; 99284-25